=== PATIENT | female | born 1945 | race Caucasian/White ===

== ENCOUNTER 2020-02-20 21:24 | Inpatient (IN) | payer OTHER ==
[~2020-02-20] VITALS: Ht 162.6 cm; Wt 94.6 kg
[2020-02-20 22:06] LABS: BASOPHILS ABSOLUTE AUTO 0.06 K/mm3 (0.00-0.23); BASOPHILS PERCENT AUTO 1 % (0-2); EOSINOPHILS ABSOLUTE AUTO 0.07 K/mm3 (0.00-0.68); EOSINOPHILS PERCENT AUTO 1 % (0-6); Hematocrit 40.9 % (33.0-51.0); Hemoglobin 12.7 g/dL (11.5-16.0); IMMATURE GRAN ABSOLUTE AUTO 0.06 K/mm3 (0.00-0.10); IMMATURE GRAN PERCENT AUTO 1 % (0-1); LYMPHOCYTES ABSOLUTE AUTO 1.83 K/mm3 (0.84-5.20); LYMPHOCYTES PERCENT AUTO 14 % (21-46); MONOCYTES ABSOLUTE AUTO 0.66 K/mm3 (0.16-1.47); MONOCYTES PERCENT AUTO 5 % (4-13); Mean Corpuscular HGB 29.9 pg (26.0-34.0); Mean Corpuscular HGB Conc 31.1 g/dL (31.5-36.5); Mean Corpuscular Volume 96 fL (80-100); Mean Platelet Volume 9.5 fL (9.1-12.4); NEUTROPHILS ABSOLUTE AUTO 10.62 K/mm3 (1.96-9.15); NEUTROPHILS PERCENT AUTO 80 % (41-73); Platelet Count 386 K/mm3 (150-400); RDW Coefficient Variation 13.5 % (11.7-14.2); RDW Standard Deviation 48.3 fL (35.1-46.3); Red Blood Cell Count 4.25 M/mm3 (3.80-5.20)
[2020-02-20 22:23] LABS: Albumin/Globulin Ratio 0.6 (0.8-1.8); Bilirubin, Total 0.4 mg/dL (0.1-1.0); Bun/Creatinine Ratio 17.3 (12.0-20.0); Calcium, Blood 9.9 mg/dL (8.5-10.1); Creatinine, Blood 7.29 mg/dL (0.40-1.00); Potassium, Blood 5.4 mmol/L (3.5-5.5)
[2020-02-20] MEDS ORDERED: Prinivil10 MG (22:40)
[2020-02-20 22:46] LABS: Source, Urine Clean Catch
[2020-02-20] MEDS ORDERED: OMEP20ER PO (22:47)
[2020-02-20] MEDS ORDERED: NORVASC2.5 MG PO (22:47)
[2020-02-20] MEDS ORDERED: K-Phos Origina500 MG PO (22:48)
[2020-02-20 22:49] LABS: Blood, Urine 4+ (Neg); Glucose Qualitative, Urine Neg (Neg); Ketones, Urine 1+ (Neg); Leukocyte Esterase, Urine 3+ (Neg); Nitrite, Urine Neg (Neg); Protein, Urine 3+ (Neg); Specific Gravity, Urine 1.025 (1.003-1.022); Urobilinogen, Urine NORM (Normal)
[2020-02-20 22:50] LABS: Bilirubin, Urine 3+ (Neg)
[2020-02-20 22:51] LABS: Appearance, Urine Cloudy (Clear); Color, Urine Amber (P-Yellow)
[2020-02-20 22:58] LABS: Bacteria Many /hpf; Red Blood Cells, Urine 0-2 /hpf (0-2); Squamous Epithelial Cells Mod /hpf (Few); White Blood Cells, Urine TNTC /hpf (0-5)
--- NOTE | 2020-02-21 05:59 | NUR ---
NO CHANGES SINCE ADMIT, SEE ADMISSION ASSEMENT FOR FULL ASSEMENT. SITTING ON SIDE OF BED, CALL LIGHT IN REACH, WILL CONTINUE TO MONITOR.
[2020-02-21 09:31] LABS: Hematocrit 38.7 % (33.0-51.0); Hemoglobin 11.7 g/dL (11.5-16.0); Mean Corpuscular HGB 29.7 pg (26.0-34.0); Mean Corpuscular HGB Conc 30.2 g/dL (31.5-36.5); Mean Corpuscular Volume 98 fL (80-100); Mean Platelet Volume 9.5 fL (9.1-12.4); Platelet Count 327 K/mm3 (150-400); RDW Coefficient Variation 13.6 % (11.7-14.2); RDW Standard Deviation 49.1 fL (35.1-46.3); Red Blood Cell Count 3.94 M/mm3 (3.80-5.20); White Blood Cell Count 10.03 K/mm3 (4.00-11.30)
[2020-02-21 09:54] LABS: Albumin, Blood 2.6 g/dL (3.4-5.0); Albumin/Globulin Ratio 0.6 (0.8-1.8); Bilirubin, Total 0.2 mg/dL (0.1-1.0); Bun/Creatinine Ratio 18.5 (12.0-20.0); Calcium, Blood 9.5 mg/dL (8.5-10.1); Creatinine, Blood 6.75 mg/dL (0.40-1.00); Globulin, Blood 4.4 g/dL (2.2-4.0); Potassium, Blood 5.4 mmol/L (3.5-5.5)
[2020-02-21 13:13] LABS: Bun/Creatinine Ratio 19.4 (12.0-20.0); Calcium, Blood 9.1 mg/dL (8.5-10.1); Creatinine, Blood 6.09 mg/dL (0.40-1.00); Potassium, Blood 5.1 mmol/L (3.5-5.5)
--- NOTE | 2020-02-21 17:35 | NUR ---
SHIFT SUMMARY PT ALERT AND ORIENTED. VS STABLE. O2 SATS REMAIN ABOVE 90% ON RA. BP STABLE SINCE BOLUS. SODIUM BICARB INFUSING PER ORDERS. PT HAS INCREASED URINE OUTPUT THIS AFTERNOON. PT REPORTS IMPROVED APPETITE. PT ABLE TO AMBULATE TO BATHROOM NEEDED INDEPENDENTLY. WILL CONTINUE TO MONITOR AND REPORT TO ONCOMING RN. CALL LIGHT IN REACH.
[2020-02-22 04:27] LABS: BASOPHILS ABSOLUTE AUTO 0.04 K/mm3 (0.00-0.23); BASOPHILS PERCENT AUTO 1 % (0-2); EOSINOPHILS ABSOLUTE AUTO 0.08 K/mm3 (0.00-0.68); EOSINOPHILS PERCENT AUTO 1 % (0-6); Hematocrit 33.8 % (33.0-51.0); Hemoglobin 10.9 g/dL (11.5-16.0); IMMATURE GRAN ABSOLUTE AUTO 0.02 K/mm3 (0.00-0.10); IMMATURE GRAN PERCENT AUTO 0 % (0-1); LYMPHOCYTES ABSOLUTE AUTO 1.56 K/mm3 (0.84-5.20); LYMPHOCYTES PERCENT AUTO 20 % (21-46); MONOCYTES ABSOLUTE AUTO 0.45 K/mm3 (0.16-1.47); MONOCYTES PERCENT AUTO 6 % (4-13); Mean Corpuscular HGB 30.2 pg (26.0-34.0); Mean Corpuscular HGB Conc 32.2 g/dL (31.5-36.5); Mean Platelet Volume 9.7 fL (9.1-12.4); NEUTROPHILS ABSOLUTE AUTO 5.67 K/mm3 (1.96-9.15); NEUTROPHILS PERCENT AUTO 73 % (41-73); Platelet Count 316 K/mm3 (150-400); RDW Coefficient Variation 13.5 % (11.7-14.2); RDW Standard Deviation 46.5 fL (35.1-46.3); Red Blood Cell Count 3.61 M/mm3 (3.80-5.20); White Blood Cell Count 7.82 K/mm3 (4.00-11.30)
[2020-02-22 04:30] LABS: Mean Corpuscular Volume 94 fL (80-100)
[2020-02-22 04:41] LABS: Bun/Creatinine Ratio 24.8 (12.0-20.0); Calcium, Blood 8.7 mg/dL (8.5-10.1); Creatinine, Blood 3.83 mg/dL (0.40-1.00); Potassium, Blood 4.4 mmol/L (3.5-5.5)
--- NOTE | 2020-02-22 05:24 | NUR ---
END OF SHIFT SUMMARY NO ACUTE CHANGES THIS SHIFT. VSS, BP INCREASING TO >100 SBP. POWERGLIDE PLACED DUE TO PREVIOUS IV FAILING AND DIFFICULTY PLACING A NEW IV. NA BICARB CONTINUES TO INFUSE AT 150MLS/HR. PT TOLERATES THIS WELL. PT HAS VOIDED MUCH T/O THE NIGHT. COLOR BECOMING LESS DARK GRADUALLY. OTHERWISE, PT HAS BEEN RESTING OFF AND ON. WILL CONTINUE TO MONITOR UNTIL SHIFT CHANGE.
--- NOTE | 2020-02-22 07:26 | NUR ---
ASSUMED CARE: MORTGAGE LOAN ORIGINATOR AT BEDSIDE ASSISTING PT TO RESTROOM UPON ENTRANCE INTO ROOM. NO ACUTE NEEDS OR CONCERNS AT THIS TIME.
--- NOTE | 2020-02-22 14:35 | NUR ---
PT ARRIVED TO ROOM 312 FROM U 11 VIA W/C. PT ABLE TO STAND AND SELF TRANSFER TO BED. SHE IS A/O X 4, INDEPENDENT IN ROOM AND WILL AMBULATE IN CANCHOLA. GAIT IS STEADY. DENIES PAIN, NO WANTS OR NEEDS AT THIS TIME, CALL GONZALEZ IN REACH. WILL MONITOR.
--- NOTE | 2020-02-22 14:57 | NUR ---
REPORT CALLED TO MARLEN NEELY. PT TRANSFERRED VIA WHEEL CHAIR BY HOSPITAL STAFF. DENIED NEEDS OR CONCERNS AT THIS TIME AFTER TREATING HEADACHE WITH TYLENOL
--- NOTE | 2020-02-22 18:28 | NUR ---
NO ACUTE CHANGES NOTED SINCE ARRIVAL TO ROOM. CONTINUES TO DENIES PAIN, AMBUALATES IN CANCHOLA AT WILL. WILL CONTINUE TO MONITOR AND REPORT TO ONCOMING RN.
--- NOTE | 2020-02-22 21:23 | NUR ---
PT UP ADLIB TO ENTIRE LENGTH HALLWAY WITH GAIT SLOW AND STEADY X 1 STANDBY ASSIST; PT SAT UP CHAIR X 1 HOUR AND TOLERATED ACTIVITY WELL.
--- NOTE | 2020-02-23 04:35 | NUR ---
SHIFT SUMMARY: 74 Y/O FEMALE RESTED COMFORTABLY ALL SHIFT; DENIES PAIN OR NAUSEA; UP ADLIB TO BATHROOM AND HALLWAYS THIS SHIFT WITH GAIT SLOW AND STEADY; HAPPY AND COOPERATIVE; EAGER TO RETURN HOME SOON; BED LOW POSITION WITH CALL LIGHT AT SIDE.
[2020-02-23 06:05] LABS: BASOPHILS ABSOLUTE AUTO 0.03 K/mm3 (0.00-0.23); BASOPHILS PERCENT AUTO 1 % (0-2); EOSINOPHILS ABSOLUTE AUTO 0.11 K/mm3 (0.00-0.68); EOSINOPHILS PERCENT AUTO 2 % (0-6); Hematocrit 32.2 % (33.0-51.0); Hemoglobin 10.1 g/dL (11.5-16.0); IMMATURE GRAN ABSOLUTE AUTO 0.01 K/mm3 (0.00-0.10); IMMATURE GRAN PERCENT AUTO 0 % (0-1); LYMPHOCYTES ABSOLUTE AUTO 1.48 K/mm3 (0.84-5.20); LYMPHOCYTES PERCENT AUTO 31 % (21-46); MONOCYTES PERCENT AUTO 8 % (4-13); Mean Corpuscular HGB Conc 31.4 g/dL (31.5-36.5); Mean Corpuscular Volume 96 fL (80-100); Mean Platelet Volume 9.7 fL (9.1-12.4); NEUTROPHILS ABSOLUTE AUTO 2.79 K/mm3 (1.96-9.15); NEUTROPHILS PERCENT AUTO 58 % (41-73); Platelet Count 255 K/mm3 (150-400); RDW Coefficient Variation 13.6 % (11.7-14.2); RDW Standard Deviation 47.6 fL (35.1-46.3); Red Blood Cell Count 3.37 M/mm3 (3.80-5.20); White Blood Cell Count 4.82 K/mm3 (4.00-11.30)
[2020-02-23 06:16] LABS: Bun/Creatinine Ratio 34.2 (12.0-20.0); Calcium, Blood 8.7 mg/dL (8.5-10.1); Creatinine, Blood 1.55 mg/dL (0.40-1.00); Potassium, Blood 4.2 mmol/L (3.5-5.5)
--- NOTE | 2020-02-23 14:51 | NUR ---
1330 PT TO DISCHARGE HOME. POWER GLIDE REMOVED . PT SHOWERED AND DRESSED, BELONGINGS PACKED . NURSE WENT OVER DISCHARGE MEDS WITH PT. NO NEW MEDS. PT INSTRUCTED TO FOLLOW UP WITH PCP . PT WAS ABLE TO WALK OUT WITH STAFF. TOOK HER HOME.
== END 2020-02-23 13:02 | disposition home or self-care (01) | DRG 683 ==
LOC: ER 21:24 → PCU 02-21 01:29 → MEDS 02-22 14:18 → PCU 02-22 14:30 → MEDS 02-22 14:32 → ENPENDDIS 02-23 10:00 → MEDS 02-23 13:02
PROVIDERS: Emergency Medicine; Hospitalist; Internal Medicine; ADMIT Internal Medicine
DX: N17.9 Acute kidney failure, unspecified (principal); E87.2 Acidosis; N39.0 Urinary tract infection, site not specified; N18.3 Chronic kidney disease, stage 3 (moderate); K21.9 Gastro-esophageal reflux disease without esophagitis; I12.9 Hypertensive chronic kidney disease with stage 1 through stage 4 chronic kidney disease, or unspecified chronic kidney disease; I95.9 Hypotension, unspecified; E86.0 Dehydration; E21.0 Primary hyperparathyroidism
CPT/HCPCS: 36415; 71046; 76770; 80048; 80053; 81001; 82550; 85025; 85027; 87086; 93005; 93010; 96365; 96366; 99285-25; A9270; C1751; C9113; J0696; J1644; J7030; J7040; J7070

== ENCOUNTER → 2021-08-02 | Outpatient (CLI) | payer OTHER ==
[~2021-08-02] MED LIST: K-Phos Origina500 MG PO; NORVASC2.5 MG PO; OMEP20ER PO; Prinivil10 MG
[2021-08-02 17:42] LABS: Source, Urine Clean Catch
[2021-08-02 17:45] LABS: Appearance, Urine Hazy (Clear); Bilirubin, Urine Neg (Neg); Blood, Urine 2+ (Neg); Color, Urine Yellow (P-Yellow); Glucose Qualitative, Urine Neg (Neg); Ketones, Urine Neg (Neg); Leukocyte Esterase, Urine 3+ (Neg); Nitrite, Urine Pos (Neg); Protein, Urine 2+ (Neg); Urobilinogen, Urine NORM (Normal)
[2021-08-02 18:03] LABS: Bacteria Many /hpf; Squamous Epithelial Cells Few /hpf (Few); White Blood Cells, Urine TNTC /hpf (0-5)
[2021-08-02 18:04] LABS: Transitional Epithelial Cells Few /hpf (0-Rare)
== END | disposition home or self-care (01) ==
LOC: LAB SHORT 15:39 → LAB 15:39
PROVIDERS: Internal Medicine
DX: N18.2 Chronic kidney disease, stage 2 (mild) (principal); R35.0 Frequency of micturition
CPT/HCPCS: 81001; 87077; 87086; 87186

== ENCOUNTER 2021-08-26 08:57 | Emergency (ER) | payer OTHER ==
[~2021-08-26] VITALS: Ht 165.1 cm; Wt 90.3 kg
[2021-08-26 10:26] LABS: BASOPHILS ABSOLUTE AUTO 0.02 K/mm3 (0.00-0.23); BASOPHILS PERCENT AUTO 0 % (0-2); EOSINOPHILS ABSOLUTE AUTO 0.03 K/mm3 (0.00-0.68); EOSINOPHILS PERCENT AUTO 0 % (0-6); Hematocrit 33.2 % (33.0-51.0); Hemoglobin 10.6 g/dL (11.5-16.0); IMMATURE GRAN ABSOLUTE AUTO 0.02 K/mm3 (0.00-0.10); IMMATURE GRAN PERCENT AUTO 0 % (0-1); LYMPHOCYTES PERCENT AUTO 12 % (21-46); MONOCYTES ABSOLUTE AUTO 0.44 K/mm3 (0.16-1.47); MONOCYTES PERCENT AUTO 6 % (4-13); Mean Corpuscular HGB 28.2 pg (26.0-34.0); Mean Corpuscular HGB Conc 31.9 g/dL (31.5-36.5); Mean Corpuscular Volume 88 fL (80-100); Mean Platelet Volume 10.4 fL (9.1-12.4); NEUTROPHILS ABSOLUTE AUTO 6.05 K/mm3 (1.96-9.15); NEUTROPHILS PERCENT AUTO 81 % (41-73); Platelet Count 104 K/mm3 (150-400); RDW Standard Deviation 42.1 fL (35.1-46.3); Red Blood Cell Count 3.76 M/mm3 (3.80-5.20); White Blood Cell Count 7.46 K/mm3 (4.00-11.30)
[2021-08-26 10:40] LABS: Alanine Aminotransfer (ALT/SGP 9 U/L (12-78); Albumin, Blood 2.6 g/dL (3.4-5.0); Albumin/Globulin Ratio 0.6 (0.8-1.8); Alk Phos 89 U/L (50-136); Anion Gap 6 mmol/L (6-16); Aspartate Aminotrans (AST/SGOT 13 U/L (12-37); Bilirubin, Total 0.9 mg/dL (0.1-1.0); Blood Urea Nitrogen 9 mg/dL (8-24); Bun/Creatinine Ratio 11.9 (12.0-20.0); CO2, Blood 29 mmol/L (21-32); Calcium, Blood 10.3 mg/dL (8.5-10.1); Chloride, Blood 106 mmol/L (98-108); Creatinine, Blood 0.75 mg/dL (0.40-1.00); Globulin, Blood 4.1 g/dL (2.2-4.0); Glomerular Filtration Rate >60 (60-); Glucose, Blood 94 mg/dL (70-99); Potassium, Blood 3.1 mmol/L (3.5-5.5); Sodium, Blood 141 mmol/L (136-145); Total Protein, Blood 6.7 g/dL (6.4-8.2); Troponin I <0.015 ng/mL (0.000-0.040)
[2021-08-26] MEDS ORDERED: ELIQUIS5 M3 (11:20)
[2021-08-26] MEDS ORDERED: POTCHL20ER (11:20)
[2021-08-26] MEDS ORDERED: Prinivil10 MG (11:21)
[2021-08-26] MEDS ORDERED: OMEP20ER (11:22)
== END 2021-08-26 13:16 | disposition home or self-care (01) ==
LOC: ER 08:57
PROVIDERS: Emergency Medicine
DX: I26.99 Other pulmonary embolism without acute cor pulmonale (principal); D64.9 Anemia, unspecified; N93.9 Abnormal uterine and vaginal bleeding, unspecified; E87.6 Hypokalemia; K21.9 Gastro-esophageal reflux disease without esophagitis; I12.9 Hypertensive chronic kidney disease with stage 1 through stage 4 chronic kidney disease, or unspecified chronic kidney disease; N18.30 Chronic kidney disease, stage 3 unspecified; Z79.899 Other long term (current) drug therapy
CPT/HCPCS: 71046; 80053; 83880; 84484; 85025; 93005; 93010; 99284-25; A9270

== ENCOUNTER 2021-09-01 09:14 | Inpatient (IN) | payer OTHER ==
[~2021-09-01] VITALS: Ht 165.1 cm; Wt 96.0 kg
[~2021-09-01 09:14] MED LIST changes: +ELIQUIS5 M3 PO; +POTA10T PO; +Prinivil10 MG PO
[2021-09-01] MEDS ORDERED: K-Phos Origina500 MG PO (09:45)
[2021-09-01 11:58] LABS: BASOPHILS ABSOLUTE AUTO 0.04 K/mm3 (0.00-0.23); BASOPHILS PERCENT AUTO 0 % (0-2); EOSINOPHILS ABSOLUTE AUTO 0.04 K/mm3 (0.00-0.68); EOSINOPHILS PERCENT AUTO 0 % (0-6); Hematocrit 32.3 % (33.0-51.0); Hemoglobin 10.2 g/dL (11.5-16.0); IMMATURE GRAN ABSOLUTE AUTO 0.06 K/mm3 (0.00-0.10); IMMATURE GRAN PERCENT AUTO 1 % (0-1); LYMPHOCYTES ABSOLUTE AUTO 1.84 K/mm3 (0.84-5.20); LYMPHOCYTES PERCENT AUTO 15 % (21-46); MONOCYTES ABSOLUTE AUTO 0.75 K/mm3 (0.16-1.47); MONOCYTES PERCENT AUTO 6 % (4-13); Mean Corpuscular HGB Conc 31.6 g/dL (31.5-36.5); Mean Corpuscular Volume 89 fL (80-100); Mean Platelet Volume 11.2 fL (9.1-12.4); NEUTROPHILS ABSOLUTE AUTO 9.53 K/mm3 (1.96-9.15); NEUTROPHILS PERCENT AUTO 78 % (41-73); Platelet Count 69 K/mm3 (150-400); RDW Coefficient Variation 12.9 % (11.7-14.2); RDW Standard Deviation 41.8 fL (35.1-46.3); Red Blood Cell Count 3.64 M/mm3 (3.80-5.20); White Blood Cell Count 12.26 K/mm3 (4.00-11.30)
[2021-09-01 12:14] LABS: Alanine Aminotransfer (ALT/SGP 12 U/L (12-78); Albumin, Blood 2.4 g/dL (3.4-5.0); Albumin/Globulin Ratio 0.5 (0.8-1.8); Alk Phos 85 U/L (50-136); Anion Gap 10 mmol/L (6-16); Aspartate Aminotrans (AST/SGOT 25 U/L (12-37); Blood Urea Nitrogen 13 mg/dL (8-24); Bun/Creatinine Ratio 16.3 (12.0-20.0); CO2, Blood 22 mmol/L (21-32); Calcium, Blood 10.2 mg/dL (8.5-10.1); Chloride, Blood 105 mmol/L (98-108); Globulin, Blood 4.5 g/dL (2.2-4.0); Glomerular Filtration Rate >60 (60-); Glucose, Blood 124 mg/dL (70-99); Potassium, Blood 4.1 mmol/L (3.5-5.5); Sodium, Blood 137 mmol/L (136-145); Total Protein, Blood 6.9 g/dL (6.4-8.2)
[2021-09-01 12:54] LABS: International Normalized Ratio 2.2; Prothrombin Time Results 21.9 Sec (9.7-11.5)
[2021-09-01 17:32] LABS: Hematocrit 28.6 % (33.0-51.0); Hemoglobin 9.1 g/dL (11.5-16.0); Mean Corpuscular HGB 27.7 pg (26.0-34.0); Mean Corpuscular HGB Conc 31.8 g/dL (31.5-36.5); Mean Corpuscular Volume 87 fL (80-100); Mean Platelet Volume 10.9 fL (9.1-12.4); Platelet Count 55 K/mm3 (150-400); RDW Coefficient Variation 12.8 % (11.7-14.2); Red Blood Cell Count 3.29 M/mm3 (3.80-5.20); White Blood Cell Count 9.46 K/mm3 (4.00-11.30)
[2021-09-01 18:06] LABS: BAND PERCENT MAN 1 % (0-8); BASOPHILS PERCENT MAN 0 % (0-2); EOSINOPHILS PERCENT MAN 0 % (0-6); LYMPHOCYTES ABSOLUTE MAN 0.56 K/mm3 (0.84-5.20); LYMPHOCYTES PERCENT MAN 6 % (21-46); MONOCYTES ABSOLUTE MAN 0.37 K/mm3 (0.16-1.47); MONOCYTES PERCENT MAN 4 % (4-13); NEUTROPHILS ABSOLUTE MAN 8.51 K/mm3 (1.96-9.15); SEG NEUTROPHILS PERCENT MAN 89 % (41-73); TOTAL CELLS COUNTED 100
--- NOTE | 2021-09-01 18:26 | NUR ---
PATIENT STARTED ON ARGOTROBAN AT 10 ML/HR PER ALEYDA HAMILTON. MEDICATION NOT PROGRAMMED INTO THE IV PUMPS.
--- NOTE | 2021-09-01 21:59 | NUR ---
AGATROBAN RESTART AT 5.4 ML/ HR. AT THIS TIME
[2021-09-02 00:49] LABS: Source, Urine Clean Catch
[2021-09-02 00:52] LABS: Appearance, Urine Hazy (Clear); Bilirubin, Urine Neg (Neg); Blood, Urine 5+ (Neg); Color, Urine Amber (P-Yellow); Glucose Qualitative, Urine Neg (Neg); Ketones, Urine 3+ (Neg); Leukocyte Esterase, Urine 1+ (Neg); Nitrite, Urine Neg (Neg); Protein, Urine 2+ (Neg); Urobilinogen, Urine NORM (Normal)
[2021-09-02 00:57] LABS: Red Blood Cells, Urine TNTC /hpf (0-2)
[2021-09-02 00:58] LABS: Bacteria Many /hpf; Squamous Epithelial Cells Few /hpf (Few)
[2021-09-02 04:46] LABS: Hematocrit 27.7 % (33.0-51.0); Hemoglobin 8.8 g/dL (11.5-16.0); Mean Corpuscular HGB 27.5 pg (26.0-34.0); Mean Corpuscular HGB Conc 31.8 g/dL (31.5-36.5); Mean Corpuscular Volume 87 fL (80-100); Platelet Count 74 K/mm3 (150-400); RDW Coefficient Variation 12.6 % (11.7-14.2); RDW Standard Deviation 40.1 fL (35.1-46.3); White Blood Cell Count 9.91 K/mm3 (4.00-11.30)
[2021-09-02 04:57] LABS: International Normalized Ratio 3.54; Prothrombin Time Results 34.2 Sec (9.7-11.5)
[2021-09-02 05:15] LABS: Alanine Aminotransfer (ALT/SGP 8 U/L (12-78); Albumin, Blood 2.4 g/dL (3.4-5.0); Albumin/Globulin Ratio 0.6 (0.8-1.8); Alk Phos 79 U/L (50-136); Anion Gap 5 mmol/L (6-16); Aspartate Aminotrans (AST/SGOT 14 U/L (12-37); Bilirubin, Total 0.7 mg/dL (0.1-1.0); Blood Urea Nitrogen 22 mg/dL (8-24); Bun/Creatinine Ratio 29.6 (12.0-20.0); CO2, Blood 28 mmol/L (21-32); Calcium, Blood 9.6 mg/dL (8.5-10.1); Chloride, Blood 107 mmol/L (98-108); Creatinine, Blood 0.74 mg/dL (0.40-1.00); Globulin, Blood 3.7 g/dL (2.2-4.0); Glomerular Filtration Rate >60 (60-); Glucose, Blood 108 mg/dL (70-99); Magnesium, Blood 1.9 mg/dL (1.6-2.4); Potassium, Blood 3.8 mmol/L (3.5-5.5); Sodium, Blood 140 mmol/L (136-145); Total Protein, Blood 6.1 g/dL (6.4-8.2)
[2021-09-02 05:17] LABS: BASOPHILS PERCENT MAN 0 % (0-2); EOSINOPHILS PERCENT MAN 0 % (0-6); LYMPHOCYTES ABSOLUTE MAN 0.99 K/mm3 (0.84-5.20); LYMPHOCYTES PERCENT MAN 10 % (21-46); MONOCYTES ABSOLUTE MAN 0.19 K/mm3 (0.16-1.47); MONOCYTES PERCENT MAN 2 % (4-13); NEUTROPHILS ABSOLUTE MAN 8.72 K/mm3 (1.96-9.15); SEG NEUTROPHILS PERCENT MAN 88 % (41-73); TOTAL CELLS COUNTED 100
[2021-09-02 13:43] LABS: BASOPHILS ABSOLUTE AUTO 0.03 K/mm3 (0.00-0.23); BASOPHILS PERCENT AUTO 0 % (0-2); EOSINOPHILS ABSOLUTE AUTO 0.02 K/mm3 (0.00-0.68); EOSINOPHILS PERCENT AUTO 0 % (0-6); Hematocrit 30.3 % (33.0-51.0); Hemoglobin 9.8 g/dL (11.5-16.0); IMMATURE GRAN ABSOLUTE AUTO 0.05 K/mm3 (0.00-0.10); IMMATURE GRAN PERCENT AUTO 1 % (0-1); LYMPHOCYTES ABSOLUTE AUTO 1.17 K/mm3 (0.84-5.20); LYMPHOCYTES PERCENT AUTO 12 % (21-46); MONOCYTES ABSOLUTE AUTO 0.65 K/mm3 (0.16-1.47); MONOCYTES PERCENT AUTO 6 % (4-13); Mean Corpuscular HGB 28.2 pg (26.0-34.0); Mean Corpuscular HGB Conc 32.3 g/dL (31.5-36.5); Mean Corpuscular Volume 87 fL (80-100); Mean Platelet Volume 11.6 fL (9.1-12.4); NEUTROPHILS ABSOLUTE AUTO 8.23 K/mm3 (1.96-9.15); NEUTROPHILS PERCENT AUTO 81 % (41-73); Platelet Count 80 K/mm3 (150-400); RDW Coefficient Variation 12.9 % (11.7-14.2); RDW Standard Deviation 40.9 fL (35.1-46.3); Red Blood Cell Count 3.48 M/mm3 (3.80-5.20); White Blood Cell Count 10.15 K/mm3 (4.00-11.30)
--- NOTE | 2021-09-02 14:03 | NUR ---
PATIENT TRANSFERRED TO PCU 9 FROM [facility], REPORT CALLED TO MARLEN RODRIGUEZ. FAMILY NOTIFIED AND BELONGINGS SENT WITH PATIENT.
[2021-09-02 15:16] LABS: SARS-Cov-2 (COVID-19) PCR, MMC NEGATIVE (NEGATIVE)
--- NOTE | 2021-09-02 17:37 | NUR ---
RECEIVED FROM 3RD FLOOR. VSS. AFEBRILE. C/O GENERALIZED HEAD PAIN- TYLENOL X1 WITH ADEQUATE CONTROL OF PAIN PER PT. AUO. NO BM. TOLERATING CURRENT DIET. CT ABD/PELVIS AND US PELVIS COMPLETED- SEE RESULTS. ARGATROBAN GTT CONTINUED- SLIGHT OOZING OF BLOOD NOTED FROM IV INSERTION SITE. UNABLE TO WEAN O2 TOLERATING CURRENT SETTINGS. FREQUENT ROUNDS TO ENSURE PT SAFETY. PT IN NO APPARENT DISTRESS AT THIS TIME. WILL CONTINUE TO MONITOR UNTIL TRANSFER OF CARE TO ONCOMING RN.
[2021-09-03 01:37] LABS: BASOPHILS ABSOLUTE AUTO 0.03 K/mm3 (0.00-0.23); BASOPHILS PERCENT AUTO 0 % (0-2); EOSINOPHILS ABSOLUTE AUTO 0.05 K/mm3 (0.00-0.68); EOSINOPHILS PERCENT AUTO 1 % (0-6); Hematocrit 27.9 % (33.0-51.0); Hemoglobin 8.8 g/dL (11.5-16.0); IMMATURE GRAN ABSOLUTE AUTO 0.07 K/mm3 (0.00-0.10); IMMATURE GRAN PERCENT AUTO 1 % (0-1); LYMPHOCYTES ABSOLUTE AUTO 1.06 K/mm3 (0.84-5.20); LYMPHOCYTES PERCENT AUTO 11 % (21-46); MONOCYTES ABSOLUTE AUTO 0.61 K/mm3 (0.16-1.47); MONOCYTES PERCENT AUTO 6 % (4-13); Mean Corpuscular HGB 27.4 pg (26.0-34.0); Mean Corpuscular HGB Conc 31.5 g/dL (31.5-36.5); Mean Corpuscular Volume 87 fL (80-100); Mean Platelet Volume 10.9 fL (9.1-12.4); NEUTROPHILS ABSOLUTE AUTO 7.66 K/mm3 (1.96-9.15); NEUTROPHILS PERCENT AUTO 81 % (41-73); Platelet Count 75 K/mm3 (150-400); RDW Standard Deviation 41.4 fL (35.1-46.3); Red Blood Cell Count 3.21 M/mm3 (3.80-5.20); White Blood Cell Count 9.48 K/mm3 (4.00-11.30)
--- NOTE | 2021-09-03 06:13 | NUR ---
SHIFT SUMMARY PT AXO. IN SR. BP STABLE. PT DIFFICULT IV START, POWERGLIDE PLACED. AGRO GTT INFUSING PER PHARMACY, 1U BLOOD INFUSED THIS SHIFT W/O COMPLICATIONS. PT CONTINUES W/ DRY COUGH THIS SHIFT. PT ON 3-4LNC. VERY LITTLE VAGINAL BLEEDIMG NOTED. NO EXTERNAL BLEEDING NOTED EXCEPT FROM IV THAT WAS INITIALLY PULLED DUE TO LEAKAGE. PT'S FAMILY IN ROOM ON SHIFT START FOR SUPPORT, ALL LEFT BY AROUND 0. PTRECEIVED PO 0.5 ATIVAN PO FOR SLEEP, STATES THIS DID HELP SOME. OTHERWISE, PT RESTING IN ROOM, USING CALL LIGHT APPROPRIATELY. BED IN LOW POSITION.
[2021-09-03 08:34] LABS: BASOPHILS ABSOLUTE AUTO 0.02 K/mm3 (0.00-0.23); BASOPHILS PERCENT AUTO 0 % (0-2); EOSINOPHILS ABSOLUTE AUTO 0.09 K/mm3 (0.00-0.68); EOSINOPHILS PERCENT AUTO 1 % (0-6); Hematocrit 26.9 % (33.0-51.0); Hemoglobin 8.8 g/dL (11.5-16.0); IMMATURE GRAN ABSOLUTE AUTO 0.07 K/mm3 (0.00-0.10); IMMATURE GRAN PERCENT AUTO 1 % (0-1); LYMPHOCYTES ABSOLUTE AUTO 0.99 K/mm3 (0.84-5.20); LYMPHOCYTES PERCENT AUTO 10 % (21-46); MONOCYTES ABSOLUTE AUTO 0.56 K/mm3 (0.16-1.47); MONOCYTES PERCENT AUTO 6 % (4-13); Mean Corpuscular HGB 28.1 pg (26.0-34.0); Mean Corpuscular HGB Conc 32.7 g/dL (31.5-36.5); Mean Corpuscular Volume 86 fL (80-100); Mean Platelet Volume 11.1 fL (9.1-12.4); NEUTROPHILS ABSOLUTE AUTO 8.23 K/mm3 (1.96-9.15); NEUTROPHILS PERCENT AUTO 83 % (41-73); Platelet Count 88 K/mm3 (150-400); RDW Coefficient Variation 13.4 % (11.7-14.2); RDW Standard Deviation 41.6 fL (35.1-46.3); Red Blood Cell Count 3.13 M/mm3 (3.80-5.20); White Blood Cell Count 9.96 K/mm3 (4.00-11.30)
--- NOTE | 2021-09-03 17:34 | NUR ---
VSS. AFEBRILE. NO C/O PAIN. AUO. NO BM. POOR APPETITE, LITTLE PO INTAKE. UNABLE TO WEAN SUPPLEMENTAL O2- REMAINS ON 4L NC WITH STROUD. ARGATROBAN GTT CONTINUED. PENDING TRANSFER ONCE BED BECOMES AVAILABLE. FREQUENT ROUNDS TO ENSURE PT SAFETY. PT IN NO APPARENT DISTRESS AT THIS TIME. WILL CONTINUE TO MONITOR UNTIL TRANSFER OF CARE TO ONCOMING RN.
[2021-09-03 18:16] LABS: BASOPHILS ABSOLUTE AUTO 0.03 K/mm3 (0.00-0.23); BASOPHILS PERCENT AUTO 0 % (0-2); EOSINOPHILS ABSOLUTE AUTO 0.09 K/mm3 (0.00-0.68); EOSINOPHILS PERCENT AUTO 1 % (0-6); Hematocrit 28.5 % (33.0-51.0); Hemoglobin 9.1 g/dL (11.5-16.0); IMMATURE GRAN ABSOLUTE AUTO 0.06 K/mm3 (0.00-0.10); IMMATURE GRAN PERCENT AUTO 1 % (0-1); LYMPHOCYTES ABSOLUTE AUTO 1.24 K/mm3 (0.84-5.20); LYMPHOCYTES PERCENT AUTO 11 % (21-46); MONOCYTES ABSOLUTE AUTO 0.69 K/mm3 (0.16-1.47); MONOCYTES PERCENT AUTO 6 % (4-13); Mean Corpuscular HGB 27.9 pg (26.0-34.0); Mean Corpuscular HGB Conc 31.9 g/dL (31.5-36.5); Mean Corpuscular Volume 87 fL (80-100); NEUTROPHILS ABSOLUTE AUTO 8.83 K/mm3 (1.96-9.15); NEUTROPHILS PERCENT AUTO 81 % (41-73); RDW Coefficient Variation 13.7 % (11.7-14.2); RDW Standard Deviation 43.2 fL (35.1-46.3); Red Blood Cell Count 3.26 M/mm3 (3.80-5.20); White Blood Cell Count 10.94 K/mm3 (4.00-11.30)
[2021-09-03 18:31] LABS: Mean Platelet Volume 10.7 fL (9.1-12.4); Platelet Count 76 K/mm3 (150-400)
[2021-09-04 01:28] LABS: BASOPHILS ABSOLUTE AUTO 0.02 K/mm3 (0.00-0.23); BASOPHILS PERCENT AUTO 0 % (0-2); EOSINOPHILS ABSOLUTE AUTO 0.08 K/mm3 (0.00-0.68); EOSINOPHILS PERCENT AUTO 1 % (0-6); Hematocrit 25.7 % (33.0-51.0); Hemoglobin 8.3 g/dL (11.5-16.0); IMMATURE GRAN ABSOLUTE AUTO 0.06 K/mm3 (0.00-0.10); IMMATURE GRAN PERCENT AUTO 1 % (0-1); LYMPHOCYTES ABSOLUTE AUTO 1.11 K/mm3 (0.84-5.20); LYMPHOCYTES PERCENT AUTO 12 % (21-46); MONOCYTES ABSOLUTE AUTO 0.54 K/mm3 (0.16-1.47); MONOCYTES PERCENT AUTO 6 % (4-13); Mean Corpuscular HGB 27.9 pg (26.0-34.0); Mean Corpuscular HGB Conc 32.3 g/dL (31.5-36.5); Mean Corpuscular Volume 87 fL (80-100); Mean Platelet Volume 11.1 fL (9.1-12.4); NEUTROPHILS ABSOLUTE AUTO 7.49 K/mm3 (1.96-9.15); NEUTROPHILS PERCENT AUTO 81 % (41-73); Platelet Count 77 K/mm3 (150-400); RDW Coefficient Variation 13.6 % (11.7-14.2); RDW Standard Deviation 42.5 fL (35.1-46.3); Red Blood Cell Count 2.97 M/mm3 (3.80-5.20)
--- NOTE | 2021-09-04 06:15 | NUR ---
SHIFT SUMMARY PT ALERT AND ORIENTED X4. PLEASANT AND COOPERATIVE TO CARE. VSS. C/O INSOMNIA. PT INITIALLY ON NC AND DESATS WITH ACTIVITY. SWITCHED TO VENTIMASK 14L 55% FIO2 AND MAINTAINING SATS OVER 90%. ARGATROBAN GTT INFUSING AT 2.7ML/HR AND NS RUNNING AT 100ML/HR. PT IN BED WATCHING TV WITH CALL ALARM AT SIDE. WILL CONTINUE TO MONITOR UNTIL REPORT GIVEN TO DAYSHIFT MARLEN
--- NOTE | 2021-09-04 11:53 | NUR ---
UPDATE: VOICEMAIL LEFT FOR DR. 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 EKG COMPLETED THIS MORNING AND REVIEWED WITH DR. ZHOU DURING ROUNDS. CARDIOLOGY CONSULT REQUESTED.
[2021-09-04 14:10] LABS: HEPARIN INDUCED PLATELET AB 0.238 OD (0.000-0.400)
[2021-09-04 14:16] LABS: BASOPHILS ABSOLUTE AUTO 0.03 K/mm3 (0.00-0.23); BASOPHILS PERCENT AUTO 0 % (0-2); EOSINOPHILS ABSOLUTE AUTO 0.06 K/mm3 (0.00-0.68); EOSINOPHILS PERCENT AUTO 1 % (0-6); Hematocrit 27.3 % (33.0-51.0); Hemoglobin 8.8 g/dL (11.5-16.0); IMMATURE GRAN ABSOLUTE AUTO 0.07 K/mm3 (0.00-0.10); IMMATURE GRAN PERCENT AUTO 1 % (0-1); LYMPHOCYTES ABSOLUTE AUTO 1.06 K/mm3 (0.84-5.20); LYMPHOCYTES PERCENT AUTO 10 % (21-46); MONOCYTES ABSOLUTE AUTO 0.64 K/mm3 (0.16-1.47); MONOCYTES PERCENT AUTO 6 % (4-13); Mean Corpuscular HGB 28.2 pg (26.0-34.0); Mean Corpuscular HGB Conc 32.2 g/dL (31.5-36.5); Mean Corpuscular Volume 88 fL (80-100); Mean Platelet Volume 11.5 fL (9.1-12.4); NEUTROPHILS PERCENT AUTO 82 % (41-73); NRBC ABSOLUTE 0.02 K/mm3 (0.00-0.02); NRBC Auto 0.2 /100 WBC (0.0-0.2); Platelet Count 81 K/mm3 (150-400); RDW Coefficient Variation 13.8 % (11.7-14.2); RDW Standard Deviation 43.8 fL (35.1-46.3); Red Blood Cell Count 3.12 M/mm3 (3.80-5.20); White Blood Cell Count 10.36 K/mm3 (4.00-11.30)
--- NOTE | 2021-09-04 18:17 | NUR ---
VSS. AFEBRILE. C/O HEAD PAIN- TYLENOL X1, ADEQUATE CONTROL OF PAIN PER PT. AUO. BMX3, SMALL/LOOSE STOOLS. CONTINUES TO HAVE POOR APPETITE. AGRO GTT DC'D, TRANSITIONED TO XARELTO PO. L SIDED SPASMING NOTED, NOTIFIED AND ORDERED CT HEAD- SEE RESULTS. WORKED WITH PT- AMBULATED IN ROOM WITH MIN ASSIST, SAT IN CHAIR X2 HOURS. IVC FILTER ON HOLD AT THIS TIME- UNDER OBSERVATION FOR ANY ADDTIONAL BLEEDING. MINIMAL VAGINAL BLEEDING NOTED. FREQUENT ROUNDS TO ENSURE PT SAFETY AT THIS TIME. PT IN NO APPARENT DISTRESS AT THIS TIME. WILL CONTINE TO MONITOR UNTIL TRANSFER OF CARE TO ONCOMING RN. TO ONCOMING RN.
--- NOTE | 2021-09-04 18:30 | NUR ---
UPDATE VOICEMAIL LEFT FOR DR. NAGEL REGARDING CT HEAD SCAN RESULTS. DR. HEDRICK ALSO UPDATED VIA TELEPHONE REGARDING RESULTS. NO NEW ORDERS AT THIS TIME.
--- NOTE | 2021-09-05 02:18 | NUR ---
EVENT NOTE CALLED TO ROOM BY PRIMARY RN MIRIAM TO EVALUATE CHANGES TO PT'S MENTATION AND BREATHING. PT IS STRUGGLING TO GET UP OUT OF BED AND APPEARS ALTERED IN HER MENTATION UPON ARRIVAL. ASSISTED BY STAFF X 3 TO REPOSITION PT IN BED WITH HOB ELEVATED FOR WORK OF BREATHING. DIFFICULT TO OBTAIN BIOX READING, NRB IN PLACE AT 15 L. PT IS MOANING WITH EXHALATIONS. ABLE TO SHAKE HEAD YES AND NO BUT NON-VERBAL AT THIS TIME. WHEN ASKED TO SQUEEZE TIGHTLY WITH HER HANDS, SHE IS STRONG ON THE RIGHT AND FLACCID ON THE LEFT. LEFT ROOM TO CHECK TELE MONITOR SCREEN HEART RATE IS NOTED TO BE ELEVATED IN THE 120'S. RHYTHM APPEARS TO BE ST WITH PAC'S. CALLED DR. ZAMORA AND REQUESTED THAT HE RESPOND TO THE ROOM FOR RAPID DETERIORATION AND POSSIBLE CONSIDERATION FOR EXTENDING CVA. UPON ARRIVAL TO THE ROOM, PT STOPPED BREATHING AND A CODE BLUE WAS CALLED. CPR INITIATED AND CODE TEAM ARRIVED TO ASSUME RESPONSE (SEE CODE SHEET). ATTEMPTED TO CALL FAMILY LISTED IN THE CHART MULTIPLE TIMES AND LEFT MESSAGES TO RETURN CALL SOON POSSIBLE. DAUGHTER GREG RETURNED CALL AFTER THE CODE WAS CALLED AT 0126 AND NOTIFICATION WAS GIVEN AT THAT TIME. WILL INITIATE FINAL DISCHARGE INTERVENTION.
--- NOTE | 2021-09-05 02:42 | NUR ---
EVENT NOTE WAS ROUNDING IN PT ROOM. SHE WAS SLEEPING ON HER RIGHT SIDE AND APPEARED TO BE DISTRESSED, REACHING BACK WITH HER LEFT HAND FOR SOMETHING. I ASK HER IF SHE NEEDED ANYTHING AND SHE INSISTED THAT SHE NEEDED TO GET UP AND WAS FEELING FUNKY. SHE ATTEMPTS TO GET UP ON HER OWN AND I ASSIST HER TO EDGE OF BED. SHE C/O TROUBLE BREATHING AND STARTED TO GRAB AND ADJUST HER MASK. RR INCREASES AND EFFORT IS LABORED. HER MENTATION QUICKLY CHANGED. O2 SATS DROPPED INTO 70'S AND 60'S. AT THIS TIME MATT DUGAN WAS IN ROOM AND WE CALLED FOR APPLICATION INFRASTRUCTURE ENGINEERMARLEN HAMILTON TO COME IN. SHE BECAME VERBALY UNRESPONSIVE AT THIS TIME. SEE APPLICATION INFRASTRUCTURE ENGINEERMARLEN HAMILTON EVENT NOTE
== END 2021-09-05 04:00 | DRG 754 ==
LOC: ER 09:14 → PCU 16:03 → MEDS 16:03 → ERHOLD 16:03 → MEDS 17:38 → PCU 09-02 14:02
PROVIDERS: Emergency Medicine; Internal Medicine Critical Care Medicine; Nurse Practitioner Acute Care; ADMIT Internal Medicine
PROC: 2Y41X5Z Packing of Nasal Region using Packing Material (ICD-10-PCS; principal; 2021-09-01)
PROC: 30233N1 Transfusion of Nonautologous Red Blood Cells into Peripheral Vein, Percutaneous Approach (ICD-10-PCS; 2021-09-02)
PROC: 5A12012 Performance of Cardiac Output, Single, Manual (ICD-10-PCS; 2021-09-05)
PROC: 5A1935Z Respiratory Ventilation, Less than 24 Consecutive Hours (ICD-10-PCS; 2021-09-05)
PROC: 0BH17EZ Insertion of Endotracheal Airway into Trachea, Via Natural or Artificial Opening (ICD-10-PCS; 2021-09-05)
DX: C56.2 Malignant neoplasm of left ovary (principal); I26.94 Multiple subsegmental thrombotic pulmonary emboli without acute cor pulmonale; J96.01 Acute respiratory failure with hypoxia; I63.432 Cerebral infarction due to embolism of left posterior cerebral artery; D62 Acute posthemorrhagic anemia; C78.6 Secondary malignant neoplasm of retroperitoneum and peritoneum; C78.7 Secondary malignant neoplasm of liver and intrahepatic bile duct; C78.89 Secondary malignant neoplasm of other digestive organs; R18.0 Malignant ascites; C78.02 Secondary malignant neoplasm of left lung; C78.01 Secondary malignant neoplasm of right lung; I82.431 Acute embolism and thrombosis of right popliteal vein; I82.451 Acute embolism and thrombosis of right peroneal vein; I82.441 Acute embolism and thrombosis of right tibial vein; Z20.822 Contact with and (suspected) exposure to COVID-19; I12.9 Hypertensive chronic kidney disease with stage 1 through stage 4 chronic kidney disease, or unspecified chronic kidney disease; I46.9 Cardiac arrest, cause unspecified; I35.0 Nonrheumatic aortic (valve) stenosis; I27.20 Pulmonary hypertension, unspecified; N93.8 Other specified abnormal uterine and vaginal bleeding; K21.9 Gastro-esophageal reflux disease without esophagitis; E21.0 Primary hyperparathyroidism; N18.30 Chronic kidney disease, stage 3 unspecified; R04.0 Epistaxis; Z79.01 Long term (current) use of anticoagulants; Z79.899 Other long term (current) drug therapy
CPT/HCPCS: 30901; 31500; 36415; 36430; 70450; 71045; 71260; 74177; 76830; 76856; 80053; 81001; 83615; 83735; 84484; 85007; 85025; 85027; 85384; 85610; 85730; 86022; 86304; 86850; 86900; 86901; 86923; 87086; 92950; 93005; 93010; 93306; 93970; 94760; 94762; 96365-59; 96366-59; 97116; 97162; 97530; 99285-25; A9270; C1751; J0883; J3475; J7030; J7050; P9016; Q9967; U0004